=== PATIENT | male | born 1985 | race Caucasian/White ===

== ENCOUNTER → 2017-10-30 09:41 | Outpatient (CLI) | payer SELFPAY ==
--- NOTE | 2017-10-30 09:46 | CT_ITS ---
STUDY: CT MAXILLOFACIAL SINUSES REASON FOR EXAM: Male, 32 years old. Chronic sinusitis and nasal polyps. RADIATION DOSAGE (If Supplied By Facility): CTDIvol = ( 33.06 ) mGy, DLP = ( 887.57 ) mGycm TECHNIQUE: The patient was scanned in a multi detector CT scanner. High resolution axial imaging was performed without the administration of intravenous contrast material. Sagittal and coronal images were reconstructed. Individualized dose optimization techniques were used for this CT. COMPARISON: None. FINDINGS: FRONTAL SINUSES: Opacification of the frontal sinuses. ETHMOIDAL SINUSES: Opacification of the ethmoid sinuses with thinning of the bony septations. MAXILLARY SINUSES: Opacification of the maxillary sinus bilaterally. SPHENOIDAL SINUSES: Partial opacification of the sphenoid sinuses bilaterally. Obliteration of the ostiomeatal complex bilaterally due to soft tissue proliferation. Opacification of the nasal passages. The visualized osseous structures are normal. The visualized bilateral orbital contents are normal. CT/Sinus/Facial Bone IMPRESSION: Pansinusitis. Opacification of the nasal passages bilaterally. Electronically Signed: Sarbjit José MD at 14:44 EDT Tel [phone], Service support ,
== END ==
PROVIDERS: Family Provider Family Medicine; PCP Family Medicine; Referring Provider Otolaryngology; Visit Provider Otolaryngology
DX: J32.9 Chronic sinusitis, unspecified (principal)
CPT/HCPCS: 70486

== ENCOUNTER → 2018-02-20 09:52 | Outpatient (CLI) | payer OTHER, SELFPAY ==
[2018-02-20 12:07] LABS: CRP 5.83 mg/L (0.0-3.0)
[2018-02-21 20:07] LABS: Endomysial Antibody IgA Negative (Negative)
[2018-02-22 09:31] LABS: Immunoglobulin A 175 mg/dL (90-386); t-Transglutaminase IgA <2 U/mL (0-3)
--- OUTSIDE RECORDS SUMMARY | 2018-04-27 02:23 | XMS RPT_ITS ---
:1985 Author Organization [facility] Care Team Providers Name Role Phone Cesar Barbosa Attending Unavailable Cesar Barbosa Referring Unavailable Benjamin Garcia Primary Care Unavailable Daniel Esposito Attending Unavailable Daniel Esposito Referring Unavailable Benjamin Garcia Primary Care Unavailable PROBLEMS PROBLEMS DATE TYPE CONDITION / CODE ATTENDING STATUS SOURCE 11/06/2017 Unknown J32.9 - Chronic Cate, Active [place] sinusitis, [facility] unspecified / Hospital J32.9(ICD-10) Repository PROCEDURES PROCEDURES No Procedure Records FoundRESULTS RESULTS CRP Collected: 02/20/2018 Status: F Source: [place] 10:00 [facility] REPOSITORY TYPE CODE TESTS RESULT OUT OF RANGE REFERENCE UNITS LAB L501.6710 0.0-3.0 mg/L High 5.83 C-REACTIVE PROT Result Comment: C-Reactive Protein (CRP) provides useful information for the diagnosis, therapy and monitoring of inflammatory processes and associated diseases. For the evaluation of Relative Risk for Cardiovascular Disease, a High Sensitivity CRP (HSCRP) should be ordered. Performed By: #### L501.6710 #### [facility] [address], [address] CELIAC DISEASE Collected: 02/20/2018 Status: F Source: [place] PROFILE 10:00 [place] [facility] [place] TYPE CODE TESTS RESULT OUT OF RANGE REFERENCE UNITS LAB L3200.1400 90-386 mg/dL Normal IMMUNO A 175 Result Comment: Performed at: - [facility] [address] [id number] Channel Program Manager: Cesar Elmore PhD, Phone: [phone] LAB L3020.7279 0-3 U/mL Normal tTG IGA <2 Result Comment: Negative 0 - 3 Weak Positive 4 - 10 Positive >10 Tissue Transglutaminase (tTG) has been identified as the endomysial antigen. Studies have demonstr- ated that endomysial IgA antibodies have over 99% specificity for gluten sensitive enteropathy. LAB L3410.2383 Negative Normal ENDOMYSIAL IGA Negative Performed By: #### L3410.2400 #### [facility] (refer to report for specific site) refer to report for address and phone number SINUS/FACIAL BONE Observed: 10/30/2017 Status: F Source: [place] 9:46 AM [facility] [place] [facility] Imaging Services [address] [place] [address] Sinus/Facial Bone MR#: [id number] Acct: [id number] Name: MARY MAYO Rep #: [id number] : 1985 M 32 From: Sarbjit José MD PCP: Benjamin Garcia MD Status: REG CLI Study: Sinus/Facial Bone Date of Exam: 10/30/17 Exam# [id number] Ordering Dr: Daniel Esposito MD STUDY: CT MAXILLOFACIAL SINUSES REASON FOR EXAM: Male, 32 years old. Chronic sinusitis and nasal polyps. RADIATION DOSAGE (If Supplied By Facility): CTDIvol = ( 33.06 ) mGy, DLP = ( 887.57 ) mGycm TECHNIQUE: The patient was scanned in a multi detector CT scanner. High resolution axial imaging was performed without the administration of intravenous contrast material. Sagittal and coronal images were reconstructed. Individualized dose optimization techniques were used for this CT. COMPARISON: None. FINDINGS: FRONTAL SINUSES: Opacification of the frontal sinuses. ETHMOIDAL SINUSES: Opacification of the ethmoid sinuses with thinning of the bony septations. MAXILLARY SINUSES: Opacification of the maxillary sinus bilaterally. SPHENOIDAL SINUSES: Partial opacification of the sphenoid sinuses bilaterally. Obliteration of the ostiomeatal complex bilaterally due to soft tissue proliferation. Opacification of the nasal passages. The visualized osseous structures are normal. The visualized bilateral orbital contents are normal. CT/Sinus/Facial Bone IMPRESSION: Pansinusitis. Opacification of the nasal passages bilaterally. Electronically Signed: Sarbjit José MD at 14:44 EDT Tel [phone], Service support , CC: Lance Esposito MD; Benjamin Garcia MD Stock Manager: Signed ALLERGIES ALLERGIES DATE TYPE / CODE NAME / CODE REACTION SEVERITY SOURCE 05/22/2016 Drug ibuprofen/F0 Chest tightness Unknown [facility] Allergy/4160 [id number]([facility] [address](SNOMED ORM) Repository CT) ENCOUNTERS ENCOUNTERS ADMIT/DISCHARGE ACCOUNT ADMITTING ENCOUNTER LOCATION SOURCE NUMBER CLASS 02/20/2018 [id number] Ambulatory [place] 4 [facility] ing:MTLAB Repository 10/30/2017 [id number] Ambulatory [place] 2 [facility] ing:CT Repository PAYERS PAYERS ENCOUNTER GUARANTOR PAYER SUBSCRIBER SOURCE 02/20/2018 MARY Wu Primary MARY Calvo [id number] S Insurance:SPIRITISM WEAVERDOB: [facility] [id number] [place] GROU[place]olic Number: Repository [id number]: [phone] [phone] () Date: [address] [id number]: 02/20/2018 Secondary NOT GIVENUNK [place] Insurance:SELF PAY [facility] Number: Effective Repository Date:2018-02-20 10/30/2017 MARY Wu Primary Insurance:[facility] MARY Wu [place] [id number] S PACKAGE PLANPolicy WEAVERDOB: [facility] [employer] Number: [id number] Date:2017-10-10 Repository [id number]: () 10/30/2017 Secondary NOT GIVENUNK [place] Insurance:SELF PAY [facility] Number: Effective Repository Date:2017-10-10
== END ==
PROVIDERS: Family Provider Family Medicine; PCP Family Medicine; Referring Provider Internal Medicine Gastroenterology; Visit Provider Internal Medicine Gastroenterology
DX: R10.13 Epigastric pain (principal); R19.7 Diarrhea, unspecified
CPT/HCPCS: 36415; 82784; 83516; 86140; 86255

== ENCOUNTER → 2018-03-13 17:31 | Outpatient (CLI) | payer OTHER, SELFPAY ==
[2016-05-22 11:24] VITALS: BMI 24.0
== END ==
PROVIDERS: Family Provider Family Medicine; PCP Family Medicine; Referring Provider Otolaryngology; Visit Provider Otolaryngology
DX: J32.9 Chronic sinusitis, unspecified (principal)
CPT/HCPCS: 87070; 87077; 87186; 87205

== ENCOUNTER → 2020-03-03 09:07 | Outpatient (CLI) | payer OTHER, SELFPAY | PROVIDERS: PCP Family Medicine; Referring Provider Otolaryngology; Visit Provider Otolaryngology | DX: Z11.59 Encounter for screening for other viral diseases (principal) | CPT/HCPCS: 87635; C9803; U0005; U0003 ==